=== PATIENT | female | born 1950 | race Caucasian/White ===

== ENCOUNTER 2019-11-03 08:06 | Day surgery (SDC) | payer MEDICARE, OTHER ==
[2019-10-28 11:13] LABS: BASOPHILS % (AUTO) 0.3 % (0-1); EOSINOPHILS % (AUTO) 0.4 % (0-6); LYMPHOCYTES # (AUTO) 1.1 X10'3 (1.1-4.8); LYMPHOCYTES % (AUTO) 19.9 % (21-51); MEAN CORPUSCULAR HEMOGLOBIN 31.8 PG (27.0-31.0); MEAN CORPUSCULAR HGB CONC 33.2 g/dL (33.0-36.5); MEAN CORPUSCULAR VOLUME 95.7 FL (78-98); MEAN PLATELET VOLUME 8.2 FL (7.4-10.4); MONOCYTES # (AUTO) 0.3 X10'3 (0-0.9); MONOCYTES % (AUTO) 5.1 % (2-12); NEUTROPHILS # (AUTO) 4.1 X10'3 (1.8-7.7); NEUTROPHILS % (AUTO) 74.3 % (42-75); PRE OP HEMATOCRIT 43.7 % (35.0-45.0); PRE OP HEMOGLOBIN 14.5 g/dL (12.0-16.0); PRE OP PLATELET COUNT 247 X10'3 (140-440); RED BLOOD COUNT 4.56 X10'6 (4.20-5.60); RED CELL DISTRIBUTION WIDTH 13.5 % (11.5-14.5)
[2019-10-28 11:34] LABS: PRE OP PROTIME 10.2 SECONDS (9.0-12.0)
[2019-10-28 11:42] LABS: ALBUMIN 4.3 G/DL (3.4-5.0); ALBUMIN/GLOBULIN RATIO 1.3 (1.1-1.5); ALKALINE PHOSPHATASE 65 IU/L (46-116); BLOOD UREA NITROGEN 22 MG/DL (7-18); BUN/CREATININE RATIO 26.8 (6.6-38.0); CALCIUM 9.2 MG/DL (8.5-10.1); CHLORIDE 106 MMOL/L (99-107); CREATININE 0.82 MG/DL (0.40-0.90); PRE OP ALT 22 U/L (30-65); PRE OP ANION GAP 7 (8-16); PRE OP AST 12 U/L (10-37); PRE OP BILIRUB, TOTAL 0.3 MG/DL (0.0-1.0); PRE OP GLUCOSE 99 MG/DL (70-104); PRE OP POTASSIUM 4.3 MMOL/L (3.4-5.1); PRE OP SODIUM 143 MMOL/L (135-145); TOTAL CARBON DIOXIDE 30.2 MMOL/L (24-32); TOTAL PROTEIN 7.5 G/DL (6.4-8.2); eGFR 69 ML/MIN
[~2019-11-03] VITALS: Ht 167.6 cm; Wt 60.4 kg
[2019-11-03] VITALS (10 sets, daily range): BP systolic 114–144; BP diastolic 55–76
[~2019-11-03 08:06] MED LIST: LEVO25TA7 PO; PRED10TA PO; famotidine 20mg tablet PO ONE; ringers solution, lacted 1,000 ML IV SCH
[2019-11-03] MEDS ORDERED: ringers solution, lacted 1,000 ML IV SCH (08:48)
[2019-11-03] MEDS ORDERED: proCHLORperazine 10 MG/2 ml inj IV PRN (08:50)
[2019-11-03] MEDS ORDERED: morphine 4 MG/ML inj SYRINge IV PRN (08:50)
[2019-11-03] MEDS ORDERED: meperidine/PF 25mg/ml syringe IV PRN ×3 (08:50)
[2019-11-03] MEDS ORDERED: ondansetron/PF 4mg/2ml inj IV PRN (08:50)
[2019-11-03] MEDS ORDERED: morphine 2 MG/ML inj. syringe IV PRN (08:50)
[2019-11-03] MEDS ORDERED: cocaine 4% topical solution 4ml bottle ONE (11:23)
[2019-11-03] MEDS ORDERED: LIDOcaine 1% w/epiNEPHrine 1:200,000 30ml vial ONE (11:23)
[2019-11-03] MEDS ORDERED: cefTAZidime 1gm inj ONE (11:23)
[2019-11-03] MEDS ORDERED: BUPIVAcaine 0.5% W/EPI /PF 30ml vial ONE (11:23)
[2019-11-03] MEDS ORDERED: mupirocin 2% ointment 22GM ONE ×2 (11:23→12:08)
[2019-11-03] MEDS ORDERED: oxymetazoline 15 ML nasal spray NS ONE ×2 (11:24→14:30)
[2019-11-03] MEDS ORDERED: midazolam 2 mg/2 ml injection ONE (11:36)
[2019-11-03] MEDS ORDERED: fentaNYL /PF 50mcg/ml 5ml ampule ONE (11:36)
[2019-11-03] MEDS ORDERED: dexamethasone sod phosphate 10mg/ml inj ONE (11:50)
[2019-11-03] MEDS ORDERED: sevoflurane 250ml liquid IH ONE (11:50)
[2019-11-03] MEDS ORDERED: ondansetron/PF 4mg/2ml inj ONE (12:07)
[2019-11-03] MEDS ORDERED: propofol inj 20 ML IV ONE (12:08)
[2019-11-03] MEDS ORDERED: LIDOcaine 2% (20mg/ml) 5ml vial ONE (12:08)
[2019-11-03] MEDS ORDERED: rocuronium 10mg/ml inj IV ONE (12:08)
--- NOTE | 2019-11-03 13:52 | NUR ---
RECIEVED VIA RAGINI ACCOMPANIED BY ANESTHESIOLOGIST DR MARIN, REPORT GIVEN . PT A&O WITH PAIN LEVEL OF 0 AT THIS TIME.20 GAUGE PIV FUE PATENT AND RUNNING LR AT 100 ML/HR. VSS, SKIN PINK AND WARM, MARYANNE GIBSON. Addendum: 11/03/19 at 1433 by Marija Hope RN Amended: Links added.
[2019-11-03] MEDS ORDERED: salt irrigation nasal spray 45 ML SPRAY NS PRN (14:30)
--- NOTE | 2019-11-03 15:12 | NUR ---
PT A&O WITH PAIN LEVEL OF 2 AT THIS TIME.20 GAUGE PIV DC/D WITH CATH TIP INTACT, VSS, SKIN PINK AND WARM, GIBSON, ABD SOFT. SCANT DRAINAGE TO 4X4 DRESSING.DISCHARGE CRITERIA MET. DISCHARGE INSTRUCTIONS GIVEN AND VERBALIZED UNDERSTANDING. TRANSFERRED TO FRIEND VIA [employer] TO HOME IN PRIVATE VEHICLE.
== END 2019-11-03 15:12 | disposition home or self-care (01) ==
LOC: PAS 08:06
PROVIDERS: ATTEND Otolaryngology
DX: J32.8 Other chronic sinusitis (principal); J34.89 Other specified disorders of nose and nasal sinuses; Z98.890 Other specified postprocedural states; Z79.01 Long term (current) use of anticoagulants; Z79.899 Other long term (current) drug therapy
CPT/HCPCS: 31240; 31259; 31267; 36415; 61782; 80053; 82948; 85025; 85576; 85610; 85730; 87070; 87075; 87102; 93005; A6402; C1726; C2625; C9250; J0713; J1100; J2001; J2175; J2250; J2405; J2704; J3010; J7040; J7120; 88304; 88311; A4618; A7000